=== PATIENT | female | born 1945 | race Caucasian/White ===

== ENCOUNTER 2017-09-01 08:19 | Day surgery (SDC) | payer MEDICARE, OTHER ==
[~2017-09-01 08:19] MED LIST: RINGER'S SOLUTION,LACTATED 1,000 ML IV PRN; ceFAZolin SODIUM 1 GM VIAL IV PRN
[2017-09-01] MEDS ORDERED: RINGER'S SOLUTION,LACTATED 1,000 ML IV ONE (09:40)
[2017-09-01] MEDS ORDERED: BUPIVACAINE HCL 50 ML VIAL IJ ONE (11:00)
--- NOTE | 2017-09-01 11:07 | POSTOP NO ---
Date of Surgery: 09/01/17 Patient Tolerated the Procedure: Well Post Operative Diagnosis/Procedures: Glove Turner And Former Automatic: Marvin Earl PA-C Post-operative Diagnosis: Left Achilles tendinitis with enthesophyte and Rosi 's deformity Finding: Above Procedure: Left excision of Rosi's deformity and debridement of Achilles tendon with excision of enthesophyte Estimated Blood Loss: Minimal Specimens: Bone for disposal
[2017-09-01] MEDS ORDERED: oxyCODONE HCL/ACETAMINOPHEN 1 TAB TABLET PO PRN (12:15)
[2017-09-01] MEDS ORDERED: HYDROmorphone HCL 2 MG/ML VIAL IV PRN (12:16)
[2017-09-01] MEDS ORDERED: RINGER'S SOLUTION,LACTATED 1,000 ML IV PRN (12:16)
[2017-09-01 13:02] VITALS: BP 140/77
== END 2017-09-01 08:20 | disposition home or self-care (01) ==
LOC: AMB 08:19
PROVIDERS: ATTEND Orthopaedic Surgery
PROC: 0QBM0ZZ Excision of Left Tarsal, Open Approach (ICD-10-PCS; principal; 2017-09-01)
DX: M76.62 Achilles tendinitis, left leg (principal); M77.32 Calcaneal spur, left foot; M77.52 Other enthesopathy of left foot and ankle; I10 Essential (primary) hypertension; E78.5 Hyperlipidemia, unspecified; E03.9 Hypothyroidism, unspecified; M19.90 Unspecified osteoarthritis, unspecified site; E66.9 Obesity, unspecified; Z68.39 Body mass index [BMI] 39.0-39.9, adult

== ENCOUNTER 2018-09-24 10:06 | Inpatient (IN) ==
[~2018-09-24 10:06] MED LIST changes: +MORPHINE SULFATE 15 MG TABLET.SA PO PRN; -RINGER'S SOLUTION,LACTATED 1,000 ML IV PRN; +ROPIVACAINE HCL/PF 100 MG, EPINEPHrine 0.2 MG, KETOROLAC TROMETHAMINE 30 MG in NORMAL S... IJ PRN; +TRANEXAMIC ACID 1,000 MG in NORMAL SALINE 100 ML IV PRN
[2018-09-24] MEDS: RINGER'S SOLUTION,LACTATED 1,000 ML IV PRN ×2 (10:45→12:30)
--- NOTE | 2018-09-24 11:16 | ANES ---
Anesthesia Pre Procedure Eval Vitals/Labs: Last Vital Signs Temp 36.6 C 09/24/18 10:13 Pulse 76 09/24/18 10:13 Resp 18 09/24/18 10:13 BP 170/70 H 09/24/18 10:13 Pulse Ox 99 09/24/18 10:13 HOME MEDICATIONS Cetirizine HCl [Zyrtec] 5 mg PO DAILY 08/18/17 [Last Taken 09/23/18] Cyanocobalamin (Vitamin B-12) [Vitamin B-12] 500 mcg PO DAILY 08/18/17 [Last Taken 09/23/18] lisinopril 20 mg-hydrochlorothiazide 12.5 mg tablet 0.5 tab PO DAILY tab 05/22/18 [Last Taken 09/24/18] potassium 99 mg tablet 99 mg PO DAILY 05/22/18 [Last Taken 09/23/18] levothyroxine 112 mcg tablet 112 mcg PO DAILY #90 tab 08/13/18 [Last Taken 09/23/18] albuterol sulfate HFA 90 mcg/actuation aerosol inhaler 2 puff IH Q4H PRN #8.5 g 08/24/18 [Last Taken Unknown] nabumetone 750 mg tablet 1 tab PO BID PRN #60 tab 08/30/18 [Last Taken 09/23/18] cholecalciferol (vitamin D3) 1,000 unit capsule 1,000 unit PO DAILY 09/14/18 [Last Taken 09/23/18] omega-3 fatty acids 1,000 mg capsule 1,000 mg PO DAILY 09/14/18 [Last Taken 09/23/18] vitamin B complex and vit C no.3 15 mg-10 mg-50 mg-5 mg-300 mg capsule 1 cap PO DAILY 09/14/18 [Last Taken 09/23/18] Allergies/Adverse Reactions: Allergies Allergy/AdvReac Type Severity Reaction Status Date / Time Sulfa (Sulfonamide Allergy Intermediate Hives Verified 09/20/18 14:25 Antibiotics) acetaminophen [From Percocet] AdvReac Intermediate Vomiting Verified 09/20/18 14:25 levofloxacin [From Levaquin] AdvReac Intermediate Vomiting Verified 09/20/18 14:25 oxycodone [From Percocet] AdvReac Intermediate Vomiting Verified 09/20/18 14:25 - Planned Procedure Planned Procedure: R total knee Medication List Reviewed:: Yes Allergies Verified: Yes Medical History (Last Reviewed 09/24/18 @ 11:13 by Arsaaln Trimble CRNA) Hypothyroidism (Chronic) Hyperlipidemia (Chronic) Heel pain (Chronic) left Head injury (Resolved) Onset Date: ~08/2014 syncope d/t gastroenteritis, fell at home, neg. 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 Nathan History of arthroscopy of left knee Onset Date: ~2002 Dr. Sánchez History of cholecystectomy Onset Date: ~01/24/12 Dr. Barajas History of lymph node excision Onset Date: Unknown removed from right axilla at age 4 Family History (Last Reviewed 09/24/18 @ 11:13 by Arsalan Trimble CRNA) Father Parkinson disease CVA (cerebral vascular accident) Mother Cancer patient unknown of area Hypertension Obesity Brother Myocardial infarction Hypertension Obesity Son Alive and well Aunt Diabetes maternal Daughter , stillborn @ 7months w/anencephaly Anencephaly Son , -lived 20 min. w/anencephaly Anencephaly Family/Other Diabetes - Family Anesthesia History Family History:: no untoward family reactions to anesthesia, no familial bleeding tendencies, no family history of clotting disorders, no family history of premature - Airway/Neck/Teeth Within Normal Limits:: Yes Denture Type: Full upper, Full lower Neck Exam: full range of motion Mallampatti Score: 3 Thyromental (T-M) distance: > 6 cm Mandibulo Hyoid distance: > 3 cm - Respiratory Respiratory History: bronchitis - recent Respiratory Physical: lungs clear Smoking Status: Never smoker Sleep Apnea currently treated: No Sleep Apnea by current assessment: No - although some anatomic inclination - Cardiovascular Cardiac History: hypertension Tolerate Activity: Fair Heart Sounds: S1 & S2, Regular - Anesthesia Assessment and Plan ASA Class: PS, III Anesthesia Type Plan: Block - For post op pain relief, Spinal
[2018-09-24] MEDS ORDERED: ACETAMINOPHEN 500 MG TABLET PO PRN (13:35)
[2018-09-24] MEDS ORDERED: ZOLPIDEM TARTRATE 5 MG TABLET PO PRN (13:35)
[2018-09-24] MEDS ORDERED: MAG HYDROX/ALUMINUM HYD/SIMETH 30 ML UDC PO PRN (13:35)
[2018-09-24] MEDS ORDERED: MAGNESIUM HYDROXIDE 30 ML UDC PO PRN (13:35)
[2018-09-24] MEDS ORDERED: diphenhydrAMINE HCL 50 MG/ML VIAL IV PRN (13:35)
[2018-09-24] MEDS ORDERED: MORPHINE SULFATE 4 MG/ML SYRG IV PRN (13:35)
[2018-09-24] MEDS ORDERED: MORPHINE SULFATE 10 MG/0.5 ML SYRINGE PO PRN (13:35)
[2018-09-24] MEDS ORDERED: ALBUTEROL SULFATE 2.5 MG/0.5 ML VIAL.NEB IH PRN (13:37)
--- NOTE | 2018-09-24 13:40 | OR ---
Operative Report - Dictated Report Narrative: Date: 09/24/2018 Preoperative diagnosis: Right Knee degenerative joint disease. Postoperative diagnosis: Right Knee degenerative joint disease. Procedure: Right Total knee arthroplasty. Surgeon: Joseph Nathan M.D. Receptionist Nurse: Marvin Earl PA-C (provided and essential set of skilled, educated hands that assisted with transfer, positioning, prepping, draping, manipulation, retraction, placement of jigs, injection, insertion of implants, irrigation, closure wounds, and dressings all of which could not be performed by the available surgical crew) Anesthesia: Spinal with regional block and local periarticular joint injection. Complications: None Specimens: Bone for disposal. Estimated blood loss: Minimal. Tourniquet time: 90 Minutes at 350 millimeters of mercury. Retained implants: Depuy Attune size 5 right lugged cemented posterior stabilized femoral compo nent. Size 5 fixed-bearing cemented tibial platform. 5 by 5 millimeter posterior stabilized cross-linked tibial insert. 35 millimeter medialized patella button. Indications: Mrs. Alcala is a 72-year-old female who has bilateral knee pain and arthrosis. She is here today for her right total knee arthroplasty. This patient was followed in my clinic for period of time with significant complaints of right knee pain consistent with arthritic changes. She had failed conservative measures including, but not limited to, activity modification, passage of time, medications, and other conservative measures. Patient wished to proceed with surgical treatment. The risks, benefits, and alternatives were discussed in clinic. The risks of , blood clots, bleeding, infection, nerve/tendon blood vessel/ injury, malposition of components, intraoperative fracture, postoperative limited range of motion, persistent pain, failure of components, and need for additional procedures. Patient wished to proceed consent was obtained after answering all questions. Procedure: After marking the correct extremity on the floor, the patient was taken to the operating room. A timeout was performed. IV antibiotics consisting of Ancef were administered prior to the procedure. A regional followed by spinal anesthetic was induced by anesthesia, per my request, on the operative table with all bony prominences well-padded. Roberts catheter was placed, and a bump was placed under the operative side buttock. SCDs and PÉREZ hose were utilized on the nonoperative leg. A well-padded tourniquet was applied to the operative thigh. The operative leg was then pre-scrubbed with alcohol, prepped, and draped in a standard sterile fashion. After exsanguinating the extremity with an Esmarch bandage, the tourniquet was inflated. After marking out the anterior knee for standard incision centered over the patella, the skin was incised and dissected down to the joint retinaculum. The joint retinaculum was marked out as well as the horizontal axis of the patella, and a standard medial parapatellar arthrotomy was then made. The most proximal aspect of the quadriceps tendon and the patella tendon insertion were protected from release. A partial synovectomy was performed as well as a resection of the infrapatellar fat pad. The distal femoral fat pad proximal to the trochlea was also resected using cautery. The soft tissues were elevated off the medial aspect of the proximal tibia using a Rocha elevator ensuring that we did not transect the medial collateral ligament. Upon initial evaluation range of motion was approximately 10 degrees to 120 degrees of flexion. There were signs of advanced arthrosis in the medial, lateral, and patellofemoral joint spaces. There were large marginal osteophytes which were removed with a rongeur. The knee was hyperflexed and the patella was tucked laterally. Protecting the surrounding soft tissues with Homans, an entry drill was placed down the femoral canal using Whitesides line for guidance into the entry point. The intramedullary femoral alignment jatinder was utilized in order to cut the distal femur in 5 degrees of valgus resecting 10 millimeters of bone. Next the distal femur was sized to a size 5. A posterior referencing guide was utilized to place the distal femoral cutting block in 3 degrees of external rotation. This was pinned into place. The rotation was confirmed both visually and based on anatomic landmarks. The 4 in 1 cutting jig of the appropriate size was utilized in order to make all bony cuts. The angle wing was used to ensure no notching. Retractors were utilized in order to protect surrounding soft tissues. This cut did not result in any excessive notching. We then cut the box centered over the distal femur. This allowed for resection of the anterior and posterior cruciate ligaments. I then turned my attention to the preparation of the tibia. Using an extra medullary tibial alignment jatinder, 2 millimeters of bone was resected off the medial articular surface. This was made perpendicular to the mechanical axis of the joint with the alignment jatinder centered over the ankle mortise. The alignment jatinder was checked and was noted to be parallel to the mechanical axis, centered over the medial one third of the tibial tubercle, paralleling the anterior surface of the tibia. We then turned our attention to the remaining meniscus and soft tissues. These were removed while protecting the surrounding ligaments and soft tissues. The marginal osteophytes off the anterior, posterior, medial, lateral aspects of the femur and tibia were removed. The tibia was sized out to a size 5. Next the tibia was drilled and punched in an externally rotated position. Next the trial femur and a series of tibial inserts were utilized in order to allow for full extension and maximal flexion. It was found that a 5 millimeter insert gave the best range of motion and stability at multiple flexion points as well as at full extension there was less than 2 mm of gapping both medially and laterally. There is minimal anterior translation with the knee at 90 degrees of flexion and no signs of being able to dislocate the knee. The patella was then prepared. The initial thickness was 21 millimeters. This was reamed down to 12 millimeters parallel to the anterior surface of the patella. It was sized out to a size 35 medialized patella button. This was then drilled and trialed. Without any medial restraint the patella tracked appropriately and did not sublux or dislocate. At this point, it was felt these were the appropriate sized implants, and all trials were removed. The standard periarticular joint injection consisting of ropivacaine, Toradol, and epinephrine were injected into the periarticular joint tissues. The bony surfaces were thoroughly irrigated with a pulsatile-suction saline irrigation device. A bone plug from the prior resected anterior chamfer cut was placed into the drill hole at the distal femur. The bony surfaces were then dried in preparation for placement of the implants. The cement was vacuum mixed per the filler shredder machine's instructions. The cement was placed on the dry bony surfaces and posterior aspect of the implants. The implants were impacted into place, removing all extruded cement. At this point anesthesia administered tranexamic acid per protocol intravenously. The knee was placed in extension with axial loading with the trial insert while the cement cured. Once the cement cured, all remaining extruded cement was removed. The knee was placed through a range of motion with the trial insert to ensure appropriate range of motion and stability. Final range of motion was approximately 0 to 120 degrees. The knee was again thoroughly irrigated with pulsatile saline lavage. The final polyethylene insert was then impacted into place ensuring no retained soft tissues. The remaining periarticular joint injection was injected. A medium Hemovac drain was placed exiting superior laterally. The knee was then placed over a triangle and the arthrotomy was closed with interrupted #1 Vicryl after thoroughly irrigating the joint. The deep and subcutaneous tissues were closed with interrupted 0 and 3-0 Vicryl respectively. Skin was closed with a running subcutaneous 3-0 Monocryl and Prineo Dermabond dressing. 4 x 4's, Sof-Rol, and a full leg Blayne wrap were applied. All sponge, needle, blade, and instrument counts were correct prior to closing the wounds. Postoperative condition: The patient was awoken and transferred to the postanesthesia care unit in stable condition. Plan is to be admitted to the inpatient medical/surgical floor postoperatively for 24 hours of IV antibiotics, physical therapy, occupational therapy, and medical comanagement. Patient will be weightbearing as tolerated with range of motion as tolerated. DVT prophylaxis will be with SCDs, PÉREZ hose, and pharmacological anticoagulation. Anticipated hospital stay is approximately 1-3 days.
--- NOTE | 2018-09-24 13:54 | ANES ---
Post Anesthesia Discharge - Transfer of Care Transfer of Care handoff given to nurse: Yes - Discharge from PACU Discharge from PACU when meets criteria: Yes - Comfortable in PACU.
--- NOTE | 2018-09-24 13:54 | ANES ---
Anesthesia Procedure Note Procedure Note: ANESTHESIA PROCEDURE NOTE Date of Procedure: 09/24/2018 Time of procedure: 11:40 AM. Performed by: Arsalan Trimble CRNA, MSN Manager Immunology: Yara Higgins RN. Preprocedure diagnosis: Right total knee arthroplasty. Post procedure diagnosis: Same. Procedure: Right Adductor Canal Block. Indications: Post right total knee arthroplasty pain relief. Findings: See below. Details of the procedure: The patient was brought to OR #4 and placed in supine position. The patient's right femoral area to the knee was prepped with chlorhexidine and using ultrasound guidance the right femoral artery wasidentified at approximately the proximal one third femur. Under ultrasound guidance the saphenous nerve was approached with visualization of a 4 inch shielded block needle approaching the adductor canal just under the sartorius muscle. Once saphenous nerve was identified with proximity to the needle tip, the saphenous nerve was surrounded with 30 mL bupivacaine 0.5% with 1-200,000 epinephrine. Please see radiology/ultrasound report for details and retained images of the procedure. EBL: 0 Fluids: N/A. Specimen: N/A. Post procedure condition: The patient tolerated the procedure well. No complications were noted. Thank you for this consultation. Arsalan Trimble CRNA, MSN
--- NOTE | 2018-09-24 14:07 | ANES ---
Post Anesthesia Assessment - Vital Signs Vitals: Last Vital Signs Temp 36.6 C 09/24/18 13:50 Pulse 91 09/24/18 14:00 Resp 18 09/24/18 14:00 BP 124/54 09/24/18 14:00 Pulse Ox 96 09/24/18 14:00 Airway Patency: Normal - Mental Status Level Of Consciousness: Awake, Alert, Appropriate - Pain Level Pain Score: 0 - N/V Assessment Nausea/Vomiting Presence: None Dehydration:: No
[2018-09-24] MEDS ORDERED: NABUMETONE 500 MG TABLET PO PRN (14:15)
[2018-09-24] MEDS: KETOROLAC TROMETHAMINE 15 MG/ML VIAL IV SCH ×2 (14:33→19:31)
[2018-09-24] MEDS: ceFAZolin SODIUM 1 GM in DEXTROSE 5 % IN WATER 100 ML IV SCH ×4 (14:37→21:52)
[2018-09-24] MEDS: DEXTROSE 5%-LACTATED RINGERS 1,000 ML IV PRN ×2 (14:41→22:09)
[2018-09-24] MEDS: ONDANSETRON HCL/PF 2 MG/ML VIAL IV PRN (19:32)
[2018-09-24] MEDS ORDERED: MORPHINE SULFATE 15 MG TABLET.SA PO SCH (21:00)
[2018-09-24] MEDS: SENNOSIDES/DOCUSATE SODIUM 1 TAB TABLET PO SCH (21:53)
[2018-09-25] MEDS: KETOROLAC TROMETHAMINE 15 MG/ML VIAL IV SCH ×4 (01:18→19:52)
[2018-09-25] MEDS: ceFAZolin SODIUM 1 GM in DEXTROSE 5 % IN WATER 100 ML IV SCH ×2 (03:09)
[2018-09-25 05:31] LABS: Hematocrit 32.8 % (37.0-47.0); Hemoglobin 10.8 gm/dL (12.5-16.0); Mean Cell Volume 89.6 fl (78-100); Mean Corpuscular Hemoglobin 29.5 pg (27-31); Mean Corpuscular Hgb Conc 32.9 g/dl (32-36); Mean Platelet Volume 9.9 fl (8-12.5); Platelet Count 190 K/mm3 (150-450); Red Blood Count 3.66 M/mm3 (4.2-5.4); Red Cell Distribution Width 13.2 % (11.5-14.0); White Blood Count 8.8 K/mm3 (4.0-10.5)
[2018-09-25 05:34] LABS: Anion Gap 10.6 mmol/L (6.8-13.8); BUN/Creatinine Ratio 21.4 (9.0-21.6); Calcium * 8.5 mg/dL (7.9-10.9); Carbon Dioxide 29.6 mmol/L (24-32.6); Potassium 4.2 mmol/L (3.4-4.6)
[2018-09-25] MEDS: ONDANSETRON HCL/PF 2 MG/ML VIAL IV PRN ×2 (06:50→12:04)
[2018-09-25] MEDS: DEXTROSE 5%-LACTATED RINGERS 1,000 ML IV PRN (06:52)
[2018-09-25] MEDS: LEVOTHYROXINE SODIUM 112 MCG TABLET PO SCH (06:55)
--- NOTE | 2018-09-25 08:03 | PN ---
Subjective - Date and Time Seen Date: 09/25/18 Time: 08:00 Subjective Narrative: Subjective: Reports nausea. Was able to get up in the room with therapy. Pain is well-controlled. Voiding without any complications. Tolerating by mouth intake. Denies calf pain. Slept ok. Physical exam: Alert and oriented to person, place and time Right lower extremity: Palpable dorsalis pedis pulse. Sensation grossly intact to light touch. Dressings clean and dry. Able to flex and extend ankle and toes. No excessive drainage. Calf and thigh are soft and nontender. Assessment: Postop day 1 status post right total knee arthroplasty. Plan: Due to the need for pain control, post-operative limited mobility, protection of the surgical site and joint, monitoring of the wound, and the management of chronic medical conditions, she she will undergo left total knee arthroplasty tomorrow. We will adjust her pain meds requires continued inpatient care. In order to try to improve her nausea. Continue with physical and occupational therapy weightbearing as tolerated. Continue with anticoagulation. 24 hours postoperative prophylactic antibiotics. Pain control with goal to rely on oral medications. Continue bowel regimen. Will need 6 weeks with walker or assitive device to protect joint while ambulating during the recovery process. Discontinue Roberts catheter. Objective - Vitals Vitals: Last Vital Signs Temp 36.6 C 09/25/18 06:20 Pulse 73 09/25/18 06:20 Resp 18 09/25/18 06:20 BP 142/80 09/25/18 06:20 Pulse Ox 100 09/25/18 06:20 - Abnormal Lab Findings Abnormal Lab Findings: Abnormal Lab Results 09/25/18 09/25/18 Range/Units 05:10 05:10 RBC 3.66 L (4.2-5.4) M/mm3 Hgb 10.8 L (12.5-16.0) gm/dL Hct 32.8 L (37.0-47.0) % Est GFR (Non-Af Amer) 56 L (60-130) mL/min Random Glucose 136 H (70-110) mg/dL - Exam Constitutional: Present: Alert, Oriented x3 Cauti Physician Documentation - Urinary Catheter Management Urethral (Roberts) Urethral Indwelling: Yes Reason for Continuing Indwelling Catheter: Surgical Procedure Date of Insertion: 09/24/18 Time of Insertion: 11:55 Assessment/Plan - Problems/Diagnosis (1) Status post total right knee replacement Problem: Acute (2) Acute blood loss anemia Problem: Acute (3) Nausea & vomiting Problem: Acute (4) Essential hypertension Problem: Chronic (5) Hyperlipidemia Problem: Chronic (6) Hypothyroidism Problem: Chronic
[2018-09-25] MEDS: LORATADINE 10 MG TABLET PO SCH (09:15)
[2018-09-25] MEDS: OMEGA-3 FATTY ACIDS 1 CAP CAPSULE PO SCH (09:15)
[2018-09-25] MEDS: CHOLECALCIFEROL 1,000 UNIT CAPSULE PO SCH (09:16)
[2018-09-25] MEDS: VITAMIN B COMP W-C 1 TAB TABLET PO SCH (09:16)
[2018-09-25] MEDS: CYANOCOBALAMIN 1,000 MCG TABLET PO SCH (09:16)
[2018-09-25] MEDS: HYDROCHLOROTHIAZIDE 25 MG TABLET PO SCH (09:17)
[2018-09-25] MEDS: LISINOPRIL 10 MG TABLET PO SCH (09:17)
[2018-09-25] MEDS: ENOXAPARIN SODIUM 40 MG/0.4 ML SYRG SC SCH (12:07)
[2018-09-25] MEDS: SENNOSIDES/DOCUSATE SODIUM 1 TAB TABLET PO SCH (21:00)
[2018-09-26] MEDS: KETOROLAC TROMETHAMINE 15 MG/ML VIAL IV SCH ×5 (01:52→22:06)
[2018-09-26] MEDS ORDERED: ceFAZolin SODIUM 1 GM VIAL IV PRN (06:00)
[2018-09-26] MEDS ORDERED: ROPIVACAINE HCL/PF 100 MG, EPINEPHrine 0.2 MG, KETOROLAC TROMETHAMINE 30 MG in NORMAL S... IJ PRN (06:00)
[2018-09-26] MEDS ORDERED: TRANEXAMIC ACID 1,000 MG in NORMAL SALINE 100 ML IV PRN (06:00)
--- NOTE | 2018-09-26 07:27 | ANES ---
Anesthesia Pre Procedure Eval Vitals/Labs: Last Vital Signs Temp 37.8 C 09/26/18 02:30 Pulse 93 09/26/18 02:30 Resp 16 09/26/18 02:30 BP 155/63 H 09/26/18 02:30 Pulse Ox 98 09/26/18 02:30 HOME MEDICATIONS Cetirizine HCl [Zyrtec] 5 mg PO DAILY 08/18/17 [Last Taken 09/23/18] Cyanocobalamin (Vitamin B-12) [Vitamin B-12] 500 mcg PO DAILY 08/18/17 [Last Taken 09/23/18] lisinopril 20 mg-hydrochlorothiazide 12.5 mg tablet 0.5 tab PO DAILY tab 05/22/18 [Last Taken 09/24/18] potassium 99 mg tablet 99 mg PO DAILY 05/22/18 [Last Taken 09/23/18] levothyroxine 112 mcg tablet 112 mcg PO DAILY #90 tab 08/13/18 [Last Taken 09/23/18] albuterol sulfate HFA 90 mcg/actuation aerosol inhaler 2 puff IH Q4H PRN #8.5 g 08/24/18 [Last Taken Unknown] nabumetone 750 mg tablet 1 tab PO BID PRN #60 tab 08/30/18 [Last Taken 09/23/18] cholecalciferol (vitamin D3) 1,000 unit capsule 1,000 unit PO DAILY 09/14/18 [Last Taken 09/23/18] omega-3 fatty acids 1,000 mg capsule 1,000 mg PO DAILY 09/14/18 [Last Taken 09/23/18] vitamin B complex and vit C no.3 15 mg-10 mg-50 mg-5 mg-300 mg capsule 1 cap PO DAILY 09/14/18 [Last Taken 09/23/18] Allergies/Adverse Reactions: Allergies Allergy/AdvReac Type Severity Reaction Status Date / Time Sulfa (Sulfonamide Allergy Intermediate Hives Verified 09/20/18 14:25 Antibiotics) acetaminophen [From Percocet] AdvReac Intermediate Vomiting Verified 09/20/18 14:25 levofloxacin [From Levaquin] AdvReac Intermediate Vomiting Verified 09/20/18 14:25 oxycodone [From Percocet] AdvReac Intermediate Vomiting Verified 09/20/18 14:25 - Planned Procedure Planned Procedure: L total knee Medication List Reviewed:: Yes Allergies Verified: Yes Medical History (Last Reviewed 09/26/18 @ 07:26 by John Mercado CRNA) Hypothyroidism (Chronic) Hyperlipidemia (Chronic) Heel pain (Chronic) left Head injury (Resolved) Onset Date: ~08/2014 syncope d/t gastroenteritis, fell at home, neg. 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 Nathan History of arthroscopy of left knee Onset Date: ~2002 Dr. Sánchez History of cholecystectomy Onset Date: ~01/24/12 Dr. Barajas History of lymph node excision Onset Date: Unknown removed from right axilla at age 4 Family History (Last Reviewed 09/26/18 @ 07:26 by John Mercado CRNA) Father Parkinson disease CVA (cerebral vascular accident) Mother Cancer patient unknown of area Hypertension Obesity Brother Myocardial infarction Hypertension Obesity Son Alive and well Aunt Diabetes maternal Daughter , stillborn @ 7months w/anencephaly Anencephaly Son , -lived 20 min. w/anencephaly Anencephaly Family/Other Diabetes - Family Anesthesia History Family History:: no untoward family reactions to anesthesia - Airway/Neck/Teeth Within Normal Limits:: Yes Teeth Condition: intact Mallampatti Score: 2 Thyromental (T-M) distance: > 6 cm Mandibulo Hyoid distance: > 3 cm - Respiratory Respiratory Physical: lungs clear Smoking Status: Never smoker Sleep Apnea currently treated: No Sleep Apnea by current assessment: No - Cardiovascular Cardiac History: hypertension, hyperlipidemia Tolerate Activity: Fair Heart Sounds: S1 & S2, Regular - Anesthesia Assessment and Plan ASA Class: PS, III Anesthesia Type Plan: Spinal - Lt adductor canal block for postop analgesia
[2018-09-26] MEDS: RINGER'S SOLUTION,LACTATED 1,000 ML IV PRN ×3 (07:35→09:50)
[2018-09-26] MEDS: LEVOTHYROXINE SODIUM 112 MCG TABLET PO SCH (08:07)
[2018-09-26] MEDS ORDERED: DEXTROSE 5%-LACTATED RINGERS 1,000 ML IV PRN (09:45)
--- NOTE | 2018-09-26 09:45 | OR ---
Operative Report - Dictated Report Narrative: Date: 09/26/2018 Preoperative diagnosis: Left Knee degenerative joint disease. Postoperative diagnosis: Left Knee degenerative joint disease. Procedure: Left Total knee arthroplasty. Surgeon: Joseph Nathan M.D. Weed Cooking Operator: Marvin Earl PA-C (provided and essential set of skilled, educated hands that assisted with transfer, positioning, prepping, draping, manipulation, retraction, placement of jigs, injection, insertion of implants, irrigation, closure wounds, and dressings all of which could not be performed by the available surgical crew) Anesthesia: Spinal with regional block and local periarticular joint injection. Complications: None Specimens: Bone for disposal. Estimated blood loss: Minimal. Tourniquet time: 100 Minutes at 350 millimeters of mercury. Retained implants: Depuy Attune size 6 narrow left lugged cemented posterior stabilized femoral c omponent. Size 5 fixed-bearing cemented tibial platform. 6 by 8 millimeter posterior stabilized cross-linked tibial insert. 35 millimeter medialized patella button. Indications: Mrs. Alcala is a 72-year-old female who presents under 1 right total knee arthroplasty is here today for a staged left total knee arthroplasty secondary to long-standing pain and arthrosis. This patient was followed in my clinic for period of time with significant complaints of left knee pain consistent with arthritic changes. She had failed conservative measures including, but not limited to, activity modification, passage of time, medications, and other conservative measures. Patient wished to proceed with surgical treatment. The risks, benefits, and alternatives were discussed in clinic. The risks of , blood clots, bleeding, infection, nerve/tendon blood vessel/ injury, malposition of components, intraoperative fracture, postoperative limited range of motion, persistent pain, failure of components, and need for additional procedures. Patient wished to proceed consent was obtained after answering all questions. Procedure: After marking the correct extremity on the floor, the patient was giulia en to the operating room. A timeout was performed. IV antibiotics consisting of Ancef were administered prior to the procedure. A regional followed by spinal anesthetic was induced by anesthesia, per my request, on the operative table with all bony prominences well-padded. Roberts catheter was already in place, and a bump was placed under the operative side buttock. SCDs and PÉREZ hose were utilized on the nonoperative leg. A well-padded tourniquet was applied to the operative thigh. The operative leg was then pre-scrubbed with alcohol, prepped, and draped in a standard sterile fashion. After exsanguinating the extremity with an Esmarch bandage, the tourniquet was inflated. After marking out the anterior knee for standard incision centered over the patella, the skin was incised and dissected down to the joint retinaculum. The joint retinaculum was marked out as well as the horizontal axis of the patella, and a standard medial parapatellar arthrotomy was then made. The most proximal aspect of the quadriceps tendon and the patella tendon insertion were protected from release. A partial synovectomy was performed as well as a resection of the infrapatellar fat pad. The distal femoral fat pad proximal to the trochlea was also resected using cautery. The soft tissues were elevated off the medial aspect of the proximal tibia using a Rocha elevator ensuring that we did not tra nsect the medial collateral ligament. Upon initial evaluation range of motion was approximately 10 degrees to 120 degrees of flexion. There were signs of advanced arthrosis in the medial, lateral, and patellofemoral joint spaces. There were large marginal osteophytes which were removed with a rongeur. The knee was hyperflexed and the patella was tucked laterally. Protecting the surrounding soft tissues with Homans, an entry drill was placed down the femoral canal using Whitesides line for guidance into the entry point. The intramedullary femoral alignment jatinder was utilized in order to cut the distal femur in 5 degrees of valgus resecting 11 millimeters of bone. Next the distal femur was sized to a size 6. A posterior referencing guide was utilized to place the distal femoral cutting block in 3 degrees of external rotation. This was pinned into place. The rotation was confirmed both visually and based on anatomic landmarks. The 4 in 1 cutting jig of the appropriate size was utilized in order to make all bony cuts. The angle wing was used to ensure no notching. Retractors were utilized in order to protect surrounding soft tissues. This cut did not result in any excessive notching. We then cut the box centered over the distal femur. This allowed for resection of the anterior and posterior cruciate ligaments. I then turned my attention to the preparation of the tibia. Using an extra medullary tibial alignment jatinder, 5 millimeters of bone was resected off the medial articular surface. This was made perpendicular to the mechanical axis of the joint with the alignment jatinder centered over the ankle mortise. The alignment jatinder was checked and was noted to be parallel to the mechanical axis, centered over the medial one third of the tibial tubercle, paralleling the anterior surface of the tibia. We then turned our attention to the remaining meniscus and soft tissues. These were removed while protecting the surrounding ligaments and soft tissues. The marginal osteophytes off the anterior, posterior, medial, lateral aspects of the femur and tibia were removed. The tibia was sized out to a size 6. Next the tibia was drilled and punched in an externally rotated position. Next the trial femur and a series of tibial inserts were utilized in order to allow for full extension and maximal flexion. It was found that a 8 millimeter insert gave the best range of motion and stability at multiple flexion points as well as at full extension there was less than 2 mm of gapping both medially and laterally. There is minimal anterior translation with the knee at 90 degrees of flexion and no signs of being able to dislocate the knee. The patella was then prepared. The initial thickness was 21 millimeters. This was reamed down to 12 millimeters parallel to the anterior surface of the patella. It was sized out to a size 35 medialized patella button. This was then drilled and trialed. Without any medial restraint the patella tracked appropriately and did not sublux or dislocate. At this point, it was felt these were the appropriate sized implants, and all trials were removed. The standard periarticular joint injection consisting of ropivacaine, Toradol, and epinephrine were injected into the periarticular joint tissues. The bony surfaces were thoroughly irrigated with a pulsatile-suction saline irrigation device. A bone plug from the prior resected anterior chamfer cut was placed into the drill hole at the distal femur. The bony surfaces were then dried in preparation for placement of the implants. The cement was vacuum mixed per the destaticizer feeder's instructions. The cement was placed on the dry bony surfaces and posterior aspect of the implants. The implants were impacted into place, removing all extruded cement. At this point anesthesia administered tranexamic acid per protocol intravenously. The knee was placed in extension with axial loading with the trial insert while the cement cured. Once the cement cured, all remaining extruded cement was removed. The knee was placed through a range of motion with the trial insert to ensure appropriate range of motion and stability. Final range of motion was approximately 0 to 120 degrees. The knee was again thoroughly irrigated with pulsatile saline lavage. The final polyethylene insert was then impacted into place ensuring no retained soft tissues. The remaining periarticular joint injection was injected. A medium Hemovac drain was placed exiting superior laterally. The knee was then placed over a triangle and the arthrotomy was closed with interrupted #1 Vicryl after thoroughly irrigating the joint. The deep and subcutaneous tissues were closed with interrupted 0 and 3-0 Vicryl respectively. Skin was closed with a running subcutaneous 3-0 Monocryl and Prineo Dermabond dressing. 4 x 4's, Sof-Rol, and a full leg Blayne wrap were applied. All sponge, needle, blade, and instrument counts were correct prior to closing the wounds. Postoperative condition: The patient was awoken and transferred to the postanesthesia care unit in stable condition. Plan is to be admitted to the inpatient medical/surgical floor postoperatively for 24 hours of IV antibiotics, physical therapy, occupational therapy, and medical comanagement. Patient will be weightbearing as tolerated with range of motion as tolerated. DVT prophylaxis will be with SCDs, PÉREZ hose, and pharmacological anticoagulation. Anticipated hospital stay is approximately 1-3 days.
--- NOTE | 2018-09-26 10:05 | ANES ---
Post Anesthesia Discharge - Transfer of Care Transfer of Care handoff given to nurse: Yes - Discharge from PACU Discharge from PACU when meets criteria: Yes
--- NOTE | 2018-09-26 10:09 | ANES ---
Anesthesia Procedure Note Procedure Note: ANESTHESIA PROCEDURE NOTE Date of procedure: 09/26/2018. Time of procedure: 07 40. Performed by: Khanh Mercado CRNA Manager Biologics: Yara Higgins RN . Preprocedure diagnosis: DJD left knee. Desire for postoperative analgesia. Post procedure diagnosis: Same. Procedure: Ultrasound-guided left adductor canal block Indications: Postoperative analgesia. Findings: Patient brought to operating room #4 placed in supine position. She was sedated. Patient's left inner thigh was prepped with ChloraPrep. Ultrasound was utilized to identify adductor canal. 4 inch 20-gauge regional block needle was advanced under ultrasound guidance until tip of needle was positioned in adductor canal. 20 mL of 0.25% Marcaine with epinephrine 1- 200,000 was injected with adequate spread of local anesthesia noted. Regional block needle was removed intact. EBL: Minimal. Fluids: N/A. Specimen: N/A. Post procedure condition: The patient tolerated the procedure well. No complications were noted. Thank you for this consultation Khanh Mercado CRNA
[2018-09-26] MEDS: CHOLECALCIFEROL 1,000 UNIT CAPSULE PO SCH (11:45)
[2018-09-26] MEDS: VITAMIN B COMP W-C 1 TAB TABLET PO SCH (11:45)
[2018-09-26] MEDS: CYANOCOBALAMIN 1,000 MCG TABLET PO SCH (11:45)
[2018-09-26] MEDS: LISINOPRIL 10 MG TABLET PO SCH (11:45)
[2018-09-26] MEDS: HYDROCHLOROTHIAZIDE 25 MG TABLET PO SCH (11:46)
[2018-09-26] MEDS: LORATADINE 10 MG TABLET PO SCH (11:46)
[2018-09-26] MEDS: OMEGA-3 FATTY ACIDS 1 CAP CAPSULE PO SCH (11:46)
--- NOTE | 2018-09-26 12:39 | ANES ---
Post Anesthesia Assessment - Vital Signs Vitals: Last Vital Signs Temp 36.5 C 09/26/18 10:41 Pulse 93 09/26/18 12:26 Resp 18 09/26/18 12:26 BP 164/80 H 09/26/18 12:26 Pulse Ox 97 09/26/18 12:26 Airway Patency: Normal - Mental Status Level Of Consciousness: Awake - Pain Level Pain Score: 0 - N/V Assessment Nausea/Vomiting Presence: None Dehydration:: No
[2018-09-26] MEDS: ceFAZolin SODIUM 1 GM in DEXTROSE 5 % IN WATER 100 ML IV SCH ×4 (12:53→18:09)
[2018-09-26] MEDS: HYDROcodone/ACETAMINOPHEN 1 EACH TABLET PO PRN ×3 (13:41→22:01)
[2018-09-26] MEDS: ONDANSETRON HCL/PF 2 MG/ML VIAL IV PRN (19:09)
[2018-09-26] MEDS: SENNOSIDES/DOCUSATE SODIUM 1 TAB TABLET PO SCH (22:01)
[2018-09-27] MEDS: ceFAZolin SODIUM 1 GM in DEXTROSE 5 % IN WATER 100 ML IV SCH ×2 (00:30)
[2018-09-27] MEDS: KETOROLAC TROMETHAMINE 15 MG/ML VIAL IV SCH (04:23)
[2018-09-27] MEDS: HYDROcodone/ACETAMINOPHEN 1 EACH TABLET PO PRN (04:24)
[2018-09-27 05:30] LABS: Anion Gap 10.3 mmol/L (6.8-13.8); Calcium * 8.2 mg/dL (7.9-10.9); Carbon Dioxide 30.6 mmol/L (24-32.6); Estimated Creat Clear 47.1; Potassium 3.9 mmol/L (3.4-4.6)
[2018-09-27 05:51] LABS: Hematocrit 29.1 % (37.0-47.0); Hemoglobin 9.4 gm/dL (12.5-16.0); Mean Cell Volume 90.4 fl (78-100); Mean Corpuscular Hemoglobin 29.2 pg (27-31); Mean Corpuscular Hgb Conc 32.3 g/dl (32-36); Mean Platelet Volume 10.4 fl (8-12.5); Platelet Count 177 K/mm3 (150-450); Red Blood Count 3.22 M/mm3 (4.2-5.4); White Blood Count 11.4 K/mm3 (4.0-10.5)
[2018-09-27] MEDS: LEVOTHYROXINE SODIUM 112 MCG TABLET PO SCH (07:02)
[2018-09-27] MEDS: ONDANSETRON HCL/PF 2 MG/ML VIAL IV PRN ×2 (07:36→12:09)
--- NOTE | 2018-09-27 08:14 | PN ---
Subjective - Date and Time Seen Date: 09/27/18 Time: 08:11 Subjective Narrative: Subjective: Reports continued nausea. Was able to get up in the room with therapy. Pain is well-controlled. Voiding without any complications. Tolerating by mouth intake. Denies calf pain. Slept ok. Physical exam: Alert and oriented to person, place and time RLE - NVI, exam stable, wound benign Left lower extremity: Palpable dorsalis pedis pulse. Sensation grossly intact to light touch. Dressings clean and dry. Able to flex and extend ankle and toes. No excessive drainage. Calf and thigh are soft and nontender. Assessment: Postop day 1 status post Left total knee, POD 3 right total knee arthroplasty. Plan: Due to the need for pain control, post-operative limited mobility, protection of the surgical site and joint, monitoring of the wound, and the management of chr onic medical conditions, she requires continued inpatient care. Will continue to adjust pain meds to help with nausea. In order to try to improve her nausea. Continue with physical and occupational therapy weightbearing as tolerated. Continue with anticoagulation. 24 hours postoperative prophylactic antibiotics. Pain control with goal to rely on oral medications. Continue bowel regimen. Will need 6 weeks with walker or assitive device to protect joint while ambulating during the recovery process. Discontinue Roberts catheter and drain. She is looking into SNF placement and pending nausea and mobility will plan for tomorrow. Objective - Vitals Vitals: Last Vital Signs Temp 36.6 C 09/27/18 03:48 Pulse 80 09/27/18 03:48 Resp 18 09/27/18 03:48 BP 133/63 09/27/18 03:48 Pulse Ox 95 09/27/18 03:48 - Abnormal Lab Findings Abnormal Lab Findings: Abnormal Lab Results 09/27/18 09/27/18 Range/Units 05:21 05:21 WBC 11.4 H D (4.0-10.5) K/mm3 RBC 3.22 L (4.2-5.4) M/mm3 Hgb 9.4 L (12.5-16.0) gm/dL Hct 29.1 L (37.0-47.0) % Est GFR (Non-Af Amer) 55 L (60-130) mL/min Random Glucose 142 H (70-110) mg/dL Cauti Physician Documentation - Urinary Catheter Management Urethral (Roberts) Urethral Indwelling: Yes Date of Insertion: 09/24/18 Time of Insertion: 11:55 Assessment/Plan - Problems/Diagnosis (1) Status post total right knee replacement Problem: Acute (2) Acute blood loss anemia Problem: Acute (3) Nausea & vomiting Problem: Acute (4) Essential hypertension Problem: Chronic (5) Hyperlipidemia Problem: Chronic (6) Hypothyroidism Problem: Chronic (7) Status post total left knee replacement Problem: Acute
[2018-09-27] MEDS ORDERED: PROMETHAZINE HCL 25 MG TABLET PO PRN (08:39)
[2018-09-27] MEDS: LISINOPRIL 10 MG TABLET PO SCH (09:39)
[2018-09-27] MEDS: CYANOCOBALAMIN 1,000 MCG TABLET PO SCH (09:40)
[2018-09-27] MEDS: OMEGA-3 FATTY ACIDS 1 CAP CAPSULE PO SCH (09:41)
[2018-09-27] MEDS: CHOLECALCIFEROL 1,000 UNIT CAPSULE PO SCH (09:41)
[2018-09-27] MEDS: HYDROCHLOROTHIAZIDE 25 MG TABLET PO SCH (09:43)
[2018-09-27] MEDS: LORATADINE 10 MG TABLET PO SCH (09:44)
[2018-09-27] MEDS: VITAMIN B COMP W-C 1 TAB TABLET PO SCH (09:44)
[2018-09-27] MEDS: traMADol HCL 50 MG TABLET PO PRN ×3 (10:34→20:52)
[2018-09-27] MEDS: ENOXAPARIN SODIUM 40 MG/0.4 ML SYRG SC SCH (12:09)
[2018-09-27] MEDS: SENNOSIDES/DOCUSATE SODIUM 1 TAB TABLET PO SCH (20:52)
[2018-09-28] MEDS: traMADol HCL 50 MG TABLET PO PRN ×2 (05:20→10:44)
[2018-09-28] MEDS: LEVOTHYROXINE SODIUM 112 MCG TABLET PO SCH (07:53)
[2018-09-28] MEDS: OMEGA-3 FATTY ACIDS 1 CAP CAPSULE PO SCH (08:53)
[2018-09-28] MEDS: CHOLECALCIFEROL 1,000 UNIT CAPSULE PO SCH (08:53)
[2018-09-28] MEDS: LISINOPRIL 10 MG TABLET PO SCH (08:53)
[2018-09-28] MEDS: CYANOCOBALAMIN 1,000 MCG TABLET PO SCH (08:53)
[2018-09-28] MEDS: HYDROCHLOROTHIAZIDE 25 MG TABLET PO SCH (08:53)
[2018-09-28] MEDS: VITAMIN B COMP W-C 1 TAB TABLET PO SCH (08:53)
[2018-09-28] MEDS: LORATADINE 10 MG TABLET PO SCH (08:53)
--- NOTE | 2018-09-28 10:38 | DS ---
(1) Status post total right knee replacement Problem: Acute (2) Acute blood loss anemia Problem: Acute (3) Nausea & vomiting Problem: Resolved (4) Essential hypertension Problem: Chronic (5) Hyperlipidemia Problem: Chronic (6) Hypothyroidism Problem: Chronic (7) Status post total left knee replacement Problem: Acute Description of Stay: Mrs. Alcala was admitted to the floor after undergoing staged bilateral total knee arthroplasties. Tolerated this well. Was admitted to the floor postoperatively for 24 hours of IV antibiotics, pain control, medical comanagement, and occupational and physical therapy. OT and PT were consulted to assist with activities of daily living and ambulation. Was made weightbearing as tolerated with range of motion as tolerated. Pain was initially controlled with IV regimen. This was transitioned to oral once tolerating a by mouth intake. She did have noted nausea after each surgery and we backed off on majority of her narcotics but she did tolerate Ultram with oral Phenergan. Was resumed on home diet and medications. Had a Roberts catheter inserted and the operating room which was discontinued on postoperative day 1 after her second total knee. A drain was placed intraoperatively into the knees which were discontinued on postoperative days 1. Lovenox SCD and PÉREZ hose were utilized for DVT prophylaxis. Vital signs remained stable to the hospital course. Serial labs were obtained which showed a final hemoglobin of 9.4 grams. BMP was reviewed and was stable. Physical examination throughout the hospital course showed an extremity that had sensation that was intact to light touch, palpable pulses, a benign wound, motor intact to the toes, ankle, and knee. Knee range of motion was approximately 5 degrees to 60 degrees. Once an oral pain regimen was tolerated and she was somewhat slow to progress with physical therapy. Due to her limited mobility and needs for independence at home, it was elected to continue with skilled therapy at a nursing facility. Instructions: Continue with weightbearing as tolerated and range of motion as tolerated. It is okay to shower and get the wound wet as long as there is no drainage from the wound. Do not bathe or soak the wound. If there is any drainage from the wound keep the wound clean and dry and cover with dry gauze and tape. Change every 2- 3 days as needed if there is any drainage. Cover wound while showering if there is any drainage. Continue with physical therapy. Resume home diet. Report any fever over 101.5 Fahrenheit, uncontrolled pain, increased drainage, foul odor of drainage, new or increased calf pain or shortness of breath, or any other significant complaints. She'll finish 7 more days of Lovenox. A 325mg daily aspirin will be started after finishing lovenox. Continue with PÉREZ hose on the operative extremity until instructed otherwise. No driving until instructed otherwise. Follow up in approximately 10-14 days. She will utilize the [facility] Care unit to her knees when sedentary. She should use the knee CPM machine 3-4 times a day on each knee for 30 minutes to an hour with initial range of motion of 0-70 and increase by 5 per day as tolerated. Procedures Performed: see notes below List Procedures: Bilateral total knee arthroplasty Results and Findings: Lab Pending Results 09/25/18 05:10: WBC 8.8, RBC 3.66 L, Hgb 10.8 L, Hct 32.8 L, MCV 89.6, MCH 29.5, MCHC 32.9, RDW 13.2, Plt Count 190, MPV 9.9 09/25/18 05:10: Sodium 140, Plasma Sodium 141, Potassium 4.2, Chloride 104, Carbon Dioxide 29.6, Anion Gap 10.6, BUN 22, Creatinine 1.03, Est GFR (Non-Af Amer) 56 L, BUN/Creatinine Ratio 21.4, Random Glucose 136 H, Calcium 8.5 09/27/18 05:21: WBC 11.4 H D, RBC 3.22 L, Hgb 9.4 L, Hct 29.1 L, MCV 90.4, MCH 29.2, MCHC 32.3, RDW 13.0, Plt Count 177, MPV 10.4 09/27/18 05:21: Sodium 140, Plasma Sodium 141, Potassium 3.9, Chloride 103, Carbon Dioxide 30.6, Anion Gap 10.3, BUN 21, Creatinine 1.05, Est GFR (Non-Af Amer) 55 L, BUN/Creatinine Ratio 20.0, Random Glucose 142 H, Calcium 8.2 Disposition: SNF Condition: Good Discharge Activity: Activity as tolerated, Weight bearing Discharge Diet: General/regular food Alf Therapy: Physicial Therapy Referrals: Ciro Zheng DO [Primary Care Provider] - Additional Patient Instructions (free text): Follow up Orthopedic Dr Jac talavera on MondayOct 16 at 9:45am. Ice machine as tolerated when sedentary, at least 4 hrs a day, no maximum time. CPM 0-70 degrees flexion, progress as tolerated up to 110 increasing 10 degrees daily as tolerated, use 3 times a day for 1-2 hours at a time, may use for longer periods of time or more often pending patient's comfort. Prescriptions (Any new or edited meds): Enoxaparin Sodium [Lovenox] 40 mg SC Q24H #7 disp.syrin traMADol HCL [Ultram] 100 mg PO Q4H PRN #60 tab PRN Reason: Moderate Pain (Pain Scale 4-6) Complete Home Medications List: Complete Home Medication List: Cetirizine HCl [Zyrtec] 5 mg PO DAILY 08/18/17 Cyanocobalamin (Vitamin B-12) [Vitamin B-12] 500 mcg PO DAILY 08/18/17 lisinopril 20 mg-hydrochlorothiazide 12.5 mg tablet 0.5 tab PO DAILY tab 05/22/18 potassium 99 mg tablet 99 mg PO DAILY 05/22/18 levothyroxine 112 mcg tablet 112 mcg PO DAILY #90 tab 08/13/18 albuterol sulfate HFA 90 mcg/actuation aerosol inhaler 2 puff IH Q4H PRN #8.5 g 08/24/18 nabumetone 750 mg tablet 1 tab PO BID PRN #60 tab 08/30/18 cholecalciferol (vitamin D3) 1,000 unit capsule 1,000 unit PO DAILY 09/14/18 omega-3 fatty acids 1,000 mg capsule 1,000 mg PO DAILY 09/14/18 vitamin B complex and vit C no.3 15 mg-10 mg-50 mg-5 mg-300 mg capsule 1 cap PO DAILY 09/14/18 Acetaminophen [Tylenol] 1,000 mg PO Q6H PRN tab 09/28/18 Enoxaparin Sodium [Lovenox] 40 mg SC Q24H #7 disp.syrin 09/28/18 Promethazine HCl [Phenergan (Promethazine)] 25 mg PO Q6H PRN #0 tab 09/28/18 Sennosides/Docusate Sodium [Senokot-S] 2 tab PO HS #0 tab 02/08/19 traMADol HCL [Ultram] 100 mg PO Q4H PRN #60 tab 09/28/18
[2018-09-28 11:31] VITALS: BP 151/69
[2018-09-28] MEDS: ENOXAPARIN SODIUM 40 MG/0.4 ML SYRG SC SCH (11:50)
== END 2018-09-28 12:01 | DRG 470 ==
LOC: MS 10:06 → EDSTATUS 13:30
PROVIDERS: ADMIT Internal Medicine; ATTEND Orthopaedic Surgery
CPT/HCPCS: 36415; 73560; 80048; 85027; 97110; 97116; 97161; 97164; 97165; 97530; 97535; J2405